=== PATIENT | male | born 1995 | race Caucasian/White ===

== ENCOUNTER 2017-12-23 15:25 | Emergency (ER) | payer MEDICAID ==
--- NOTE | 2017-12-23 15:58 | ED Physician Chart ---
ED Chief Complaint/HPI - Patient Information Date Seen:: 12/23/17 Time Seen:: 15:30 Chief Complaint:: altered mental status Allergies:: Patient was found apparently sleeping in the grass under a tree. 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 Patient eloped from the emergency department before I could take a history or do a physical examination. Vitals:: Vital Signs - 8 hr 12/23/17 15:34 Temp 99.5 F HR 104 RR 16 BP 120/73 O2 Sat % 98 Historian:: EMS ED Review of Systems - Review of Systems General/Constitutional: No fever, No chills, No weight loss, No weakness, No diaphoresis, No edema, No loss of appetite Skin: No skin lesions, No rash, No bruising Head: No headache, No light-headedness Eyes: No loss of vision, No pain, No diplopia ENT: No earache, No nasal drainage, No sore throat, No tinnitus Neck: No neck pain, No swelling, No thyromegaly, No stiffness, No mass noted Cardio Vascular: No chest pain, No palpitations, No PND, No orthopnea, No edema Pulmonary: No SOB, No cough, No sputum, No wheezing GI: No nausea, No vomiting, No diarrhea, No pain, No melena, No hematochezia, No constipation, No hematemesis G/U: No dysuria, No frequency, No hematuria Musculoskeletal: No bone or joint pain, No back pain, No muscle pain Endocrine: No polyuria, No polydipsia Psychiatric: No prior psych history, No depression, No anxiety, No suicidal ideation Hematopoietic: No bruising, No lymphadenopathy Allergic/Immuno: No urticaria, No angioedema Neurological: No syncope, No focal symptoms, No weakness, No paresthesia, No headache, No seizure, No dizziness, No confusion, No vertigo, Other (altered mental status) ED Past Medical History - Past Medical History Past Medical History: Other (unknown) Family History: Other (unknown) Social History: Alcohol Surgical History: other (unknown) Psychiatricy History: Other (unknown) Medication: Reviewed (unknown) Family Medical History - Family Member Mother Ethnicity: Unknown Hx Family Hypertension: Yes ED Physical Exam - Physical Examination Other Gen/Cons comments:: Physical examination could not be done because patient eloped from the emergency department soon after arrival ED Septic Shock - . Is Septic Shock (SBP<90, OR Lactate>4 mmol\L) present?: No - <6hrs of presentation: Vital Signs: Vital Signs - 8 hr 12/23/17 15:34 Temp 99.5 F HR 104 RR 16 BP 120/73 O2 Sat % 98 ED Reassessment (Disposition) - Reassessment Reassessment Condition:: Unchanged - Diagnosis Diagnosis:: Altered mental status; alcohol consumption by history - Patient Disposition Discharge/Transfer:: Elope/AWOL Condition at Disposition:: Stable, Unchanged
== END 2017-12-23 15:45 | disposition left against medical advice (07) ==
LOC: ER 15:25
DX: R40.4 Transient alteration of awareness (principal)
CPT/HCPCS: Z7502